=== PATIENT | female | born 2005 | race Caucasian/White ===

== ENCOUNTER 2024-07-10 06:46 | Day surgery (SDC) | payer OTHER ==
[~2024-07-10 06:46] MED LIST: SODIUM CHLORIDE 0.9% 1,000 ML IV SCH
[2024-07-10] MEDS: SODIUM CHLORIDE 0.9% 500 ML 500 ML IV ONE (07:10)
[2024-07-10 07:24] VITALS: PULSE 80; RESP 16; TEMP 97.6
[2024-07-10 10:00] VITALS: BP 128/72
--- NOTE | 2024-07-10 16:17 | P.EPPROC ---
- EP Procedure Note Electrophysiology Procedure Note: Diagnosis Recurrent syncope Twelve-lead EKG shows sinus rhythm normal [place] narrow QRS normal ST segments normal QT interval Tilt table test per protocol Baseline blood pressure 132/67 mmHg, baseline heart rate 79 beats a minute Patient was tilted upright in angle of 70 degrees per protocol. Minimal increase in heart rate She felt hot and lightheaded with an upset stomach Through the rest of the procedure she complained of an upset stomach heart rates remained in the 80s and 90s blood pressure was normal When she was laid supine heart rate ranged from 79-86 beats a minute. Blood pressure was normal Impression normal twelve-lead EKG A variety of symptoms including feeling hot lightheaded with an upset stomach but without any significant changes in blood pressure and a minimal change in heart rate No evidence for neurocardiogenic syncope
== END 2024-07-10 09:56 | disposition home or self-care (01) ==
LOC: CATHEP 06:46
PROVIDERS: ATTEND Internal Medicine Clinical Cardiac Electrophysiology
DX: R55 Syncope and collapse
CPT/HCPCS: 84703; 93660